=== PATIENT | female | born 1995 | race African-American/Black ===

== ENCOUNTER 2018-10-12 13:56 | Observation (INO) | payer OTHER ==
[~2018-10-12] VITALS: Ht 167.6 cm; Wt 45.4 kg
[2018-10-12 14:09] VITALS: BP 130/76
[2018-10-12 14:38] LABS: URINE BILIRUBIN NEGATIVE (Negative); URINE BLOOD 2+ (Negative); URINE CLARITY CLEAR; URINE COLOR YELLOW; URINE GLUCOSE-RANDOM NEGATIVE (Negative); URINE KETONES NEGATIVE (Negative); URINE LEUKOCYTES-REFLEX NEGATIVE (Negative); URINE NITRITE-REFLEX NEGATIVE (Negative); URINE PROTEIN NEGATIVE (Negative); URINE UROBILINOGEN 0.2 E.U./dl (0.2-1.0)
[2018-10-12 14:50] LABS: BACTERIA-REFLEX None Seen /HPF (None Seen); CASTS None Seen /LPF (None Seen); CRYSTALS None Seen /LPF (None Seen); SQUAMOUS NONE SEEN /LPF (0-3); URINE RBC None Seen /HPF (0-2); URINE WBC-REFLEX None Seen /HPF (0-5)
[2018-10-12 14:54] LABS: HEMATOCRIT 39.4 % (37.0-47.0); HEMOGLOBIN 12.7 gm/dL (12.0-15.0); MCH 26.4 pg (26.0-34.0); MCHC 32.4 g/dL (28.0-37.0); MCV 81.5 fL (80.0-100.0); NUCLEATED RBCS 0 /100WBC; PLATELET COUNT* 349 thou/uL (150-400); RBC 4.83 mil/uL (4.20-5.00); RDW-CV 17.5 % (10.5-14.5); WBC 18.4 thou/uL (4.0-11.0)
[2018-10-12 14:59] LABS: CALCIUM 9.8 mg/dL (8.5-10.1); CREATININE 0.9 mg/dL (0.6-1.3); POTASSIUM 3.9 mmol/L (3.5-5.1)
[2018-10-12 15:03] LABS: ALBUMIN 4.7 g/dL (3.4-5.0); TOTAL BILIRUBIN 0.4 mg/dL (<0.1-1.0); TOTAL PROTEIN 9.4 g/dL (6.4-8.2)
[2018-10-12 15:36] LABS: ABSOLUTE LYMPHOCYTES 1.3 thou/uL (0.8-5.3); ABSOLUTE NEUTROPHILS 17.1 thou/uL (1.6-8.1)
[2018-10-12 15:37] LABS: CLUMPED PLTS OCCASIONAL; LARGE PLATELETS RARE; PLATELET ESTIMATE ADEQUATE
--- NOTE | 2018-10-12 16:55 | NUR ---
PT TO BE TAKEN TO SURGERY VIA STRETCHER AT THIS TIME.
[2018-10-12 16:56] VITALS: BP 131/82
[2018-10-12 19:35] VITALS: BP 111/71
--- NOTE | 2018-10-12 19:36 | NUR ---
PT ADMITTED TO FLOOR PER BED FROM PACU ACCOMPANIED BY PACU STAFF WITH BELONGINGS. AOX4, TALKATIVE, PLEASANT. ORIENTED TO ROOM AND CALL LITE. FAMILY MEMBERS AT BEDSIDE, S/O AT BEDSIDE. HISTORY OBTAINED AND ASSESSMENT PERFORMED,SEE ADMIT NOTES. ABD LAP SITES WITH DERMABOND INTACT, NO BLEEDING OR BRUISING NOTED. PT DENIES NAUSEA, SIPPING WATER AND ASKING FOR CRACKERS. CALL LITE IN EASY REACH, WILL CONTINUE TO MONITOR AND PROVIDE CARES NEEDED.
[2018-10-12 22:00] VITALS: BP 102/54
[2018-10-13] VITALS: BP 128/86
[2018-10-13 04:00] VITALS: BP 120/64
--- NOTE | 2018-10-13 05:26 | NUR ---
PT LAP APPY LAST EVENING, ABD LAP INCISIONS WITH DERMABOND-NO BLEEDING OR BRUISING NOTED. PT TOLERATING CRACKERS, JELLO AND LIQUIDS WITH OCC NAUSEA-ZOFRAN GIVEN WITH GOOD RESULT. SCDS ON BLE. RFA SLIV, ABX GIVEN ORDERED. UP WITH SBA TO BR TO VOID. VSS, LOW GRADE TEMP 99.6-ENCOURAGED TO COUGH AND DEEP BREATHE. FENTANYL GIVEN X2 FOR CO ABD PAIN WITH GOOD RESULT, STATES SHE WILL TAKE ORAL PAIN MED WITH FOOD THIS MORNING PRN. AOX4, PLEASANT. ABLE TO USE CALL LITE AND MAKE NEEDS KNOWN. NO LABS THIS MORNING. ANTICIPATING DC HOME TODAY.
[2018-10-13 08:28] VITALS: BP 113/73
[2018-10-13] MEDS ORDERED: NORCO 5-325 TA1 EAC1 PO (10:28)
[2018-10-13 10:30] VITALS: BP 113/73
--- NOTE | 2018-10-13 10:52 | NUR ---
ASSUMED CARE OF PT AROUND 0730 THIS AM. REFER TO ASSESSMENT. PT HAS NO C/O PAIN AT THIS TIME. TOLERATING DIET. DISCUSSED WITH DR. JAUREGUI AND ORDERS TO DC HOME WITH POST OP ORDERS. DISCHARGE INSTRUCTIONS REVIEWED WITH PT AND PT AND PARENT VERBALIZES UNDERSTANDING. ONE SCRIPT GIVEN FOR MODESTA. NO OTHER CONCERNS AT THIS TIME. CLWR.WCTM.
--- NOTE | 2018-10-14 08:03 | OP ---
[facility] [address] [place] [address] OPERATIVE REPORT Name: MICHAELESTHER Neetu Room: [address] Kellie aLnd#: [id number] Admission: 10/12/18 Attend Phys: Jair Francois Discharge: 10/13/18 Date of : [birth year] Report #: [id number] THIS REPORT FOR: //name// CC: MYRIAM physician/PCP Jair Francois DATE OF SERVICE: 10/12/2018 PREOPERATIVE DIAGNOSIS: Acute appendicitis. POSTOPERATIVE DIAGNOSIS: Acute appendicitis. OPERATION: Laparoscopic appendectomy. SURGEON: Jair Francois MD ANESTHESIA: General. ESTIMATED BLOOD LOSS: Minimal. SPECIMENS: Appendix. DESCRIPTION OF PROCEDURE: After informed consent was obtained, the patient was brought to the operating room and placed supine. SCDs were placed and working, preoperative antibiotics were administered, general anesthesia was induced. The abdomen was prepped and draped in the usual sterile fashion. A 10 mm incision was made below the umbilicus. Fascia was incised and a trocar was placed. Pneumoperitoneum was established. A right upper quadrant and left lower quadrant 5 mm ports were placed. The appendix was grasped and retracted anteriorly. It was inflamed and edematous. A window was made in the mesoappendix. The mesoappendix was ligated with a KWADWO white load stapler. The base of the appendix was then stapled with a KWADWO purple load stapler. The appendix was then removed through an Endopouch. The fascia at the umbilicus was closed with [id number] 0 Vicryl. Skin was closed with 4-0 Monocryl. Incisions were sealed with Dermabond. COMPLICATIONS: None. DISPOSITION: The patient was taken to recovery in satisfactory condition. <ELECTRONICALLY SIGNED> By: Jair Francois MD 10/14/18 [id number] [id number] 1955Jair Francois MD /nt
--- NOTE | 2018-10-14 16:06 | PATH ---
[address] [address] PATHOLOGY RPT PROCEDURE Name: LORI RODRIGUEZ Room: [address] Emery#: [id number] Admission: 10/12/18 Date of : [birth year] Discharge: 10/13/18 Report #: [id number] Path Case #: [id number] [facility] Accession Number: [id number] . 01 Material submitted: . appendix - APPENDIX . 01 Clinical history: . Appendicitis . 02 Diagnosis: Appendix: - Early acute appendicitis. (DOUGLAS:aliyah; 10/14/2018) MBR/10/14/2018 . 02 Electronically signed: . Hero Weir MD, Pathologist NPI- [id number] . 01 Gross description: . Received in formalin, labeled "Lori Rodriguez, appendix ", is an intact appendix (9.7 cm length x 0.8 cm diameter) and attached mesoappendix (6.0 x 1.0 x 0.5 cm). The proximal resection margin is closed by a linear staple line, 1.7 cm with an average 0.2 cm width. The staple line and the adjacent serosa is inked black. The serosa is richardson with distended vessels and no perforation and possible jenkins-white exudate towards the distal aspect. The lumen is dilated and filled with hemorrhagic to richardson yellow purulent material and no discrete fecalith. The wall has an average thickness of 0.2 cm. The danielito-appendiceal soft tissue has a yellow cut surface. Topper Packer tissue is submitted in A1. ([facility]; 10/13/2018) SHS/SHS . 02 Pathologist provided ICD-10: K35.80 . 02 CPT . 979319 Specimen Comment: A courtesy copy of this report has been sent to Specimen Comment: [phone]. Specimen Comment: Report sent to Performed at: [address] [id number] MD Morales Boswell MD Phone: [phone] Performed at: [address] [id number] [place] [address] PATHOLOGY RPT PROCEDURE Name: LORI RODRIGUEZ Room: [address] Kellie Land#: [id number] Admission: 10/12/18 Date of : [birth year] Discharge: 10/13/18 Report #: [id number] Path Case #: [id number] [facility] MD Phone: [phone]
== END 2018-10-13 10:48 | disposition home or self-care (01) ==
LOC: M.ERS 13:56 → M.ORTHSURG 16:13 → M.TBA-ER 16:13 → M.ORTHSURG 19:03
PROVIDERS: Nurse Practitioner Family; ADMIT Surgery
DX: K35.80 Unspecified acute appendicitis (principal); R11.2 Nausea with vomiting, unspecified